=== PATIENT | male | born 1955 | race Caucasian/White ===

== ENCOUNTER 2020-03-06 15:03 | Outpatient (CLI) | payer MEDICARE, OTHER | END 2020-03-06 15:04 | disposition home or self-care (01) | LOC: LAB 15:03 | DX: Z20.828 Contact with and (suspected) exposure to other viral communicable diseases (principal) ==

== ENCOUNTER 2020-03-07 16:00 | Outpatient (CLI) | payer MEDICARE, OTHER | END 2020-03-07 16:01 | disposition home or self-care (01) | LOC: LAB 16:00 | DX: Z20.828 Contact with and (suspected) exposure to other viral communicable diseases (principal) ==